=== PATIENT | female | born 1950 | race Caucasian/White ===

== ENCOUNTER 2016-07-13 13:23 | Inpatient (IN) | payer MEDICARE ==
[~2016-07-13] VITALS: Ht 165.1 cm; Wt 70.8 kg
--- NOTE | 2016-07-13 17:00 | NUR ---
PATIENT RECEIVED SITTING UP IN CHAIR AT BEDSIDE. NO SIGNS OF DISTRESS NOTED. ORIENTED TO ROOM. CALL LIGHT IN REACH.
[2016-07-13] MEDS ORDERED: TOPROL XL50 MG PO (17:06)
[2016-07-13] MEDS ORDERED: NORVASC10 MG PO (17:06)
[2016-07-13] MEDS ORDERED: PROPAFENONE HC150 MG PO (17:06)
[2016-07-13] MEDS ORDERED: HYDROCODONE-APA1 TAB PO (17:14)
[2016-07-13 17:18] VITALS: BMI 26.0
[2016-07-13 17:31] LABS: BASOPHILS 0.2 % (0.0-2.0); EOSINOPHILS 1.1 % (0-7); HEMATOCRIT 36.3 % (36.0-48.0); HEMOGLOBIN 12.1 g/dL (12-16); IMMATURE GRANULOCYTES 0.3 % (0-5); LYMPHOCYTES 10.6 % (15-50); MCH 31.6 pg (26.0-34.0); MCHC 33.3 g/dL (31.0-37.0); MCV 94.8 fL (80.0-100.0); MEAN PLATELET VOLUME 10.1 fL (7.4-10.4); MONOCYTES 7.2 % (2-11); NEUTROPHILS 80.6 % (40-80); PLATELET COUNT 316 10x3/uL (130-400); RBC 3.83 10x6/uL (4.00-5.40); RDW 12.2 % (11.5-14.5); WBC 15.2 10x3/uL (4.8-10.8)
[2016-07-13 17:39] LABS: INR 1.06 (0.85-1.17); PROTIME 13.7 SECONDS (11.6-15.0)
[2016-07-13 17:44] LABS: ALBUMIN 2.7 g/dL (3.4-5.0); ANION GAP 12.4 mmol/L (8-16); BILIRUBIN - DIRECT 0.15 mg/dL (0.00-0.30); BILIRUBIN - INDIRECT 0.36 mg/dL (0.00-1.00); BILIRUBIN - TOTAL 0.51 mg/dL (0.2-1.3); CALCIUM 9.4 mg/dL (8.5-10.1); CARBON DIOXIDE 31.1 mmol/L (21.0-32.0); CREATININE - SERUM 1.4 mg/dL (0.6-1.3); POTASSIUM - SERUM 3.5 mmol/L (3.5-5.1); PROTEIN - SERUM 7.3 g/dL (6.4-8.2)
[2016-07-13 17:49] VITALS: BP 118/69
[2016-07-13 19:00] VITALS: BP 110/64
--- NOTE | 2016-07-13 19:00 | NUR ---
PATIENT SITTING IN CHAIR WATCHING TV. AAOX4. RR EVEN AND UNLABORED. 0 S/S OF DISTRESS. DENIES PAIN AT THIS TIME. IVS'S TO RIGHT AC AND LEFT HAND PATENT WITH NO REDNESS OR SWELLING. CALL LIGHT WITHIN REACH.
[2016-07-14] VITALS (10 sets, daily range): BP systolic 97–116; BP diastolic 56–66; Ht 165.1 cm; Wt 70.8 kg
--- NOTE | 2016-07-14 01:35 | NUR ---
NORCO GIVEN FOR PAIN. WILL REASSESS.
[2016-07-14 05:54] LABS: BASOPHILS 0.3 % (0.0-2.0); HEMATOCRIT 33.8 % (36.0-48.0); HEMOGLOBIN 10.9 g/dL (12-16); IMMATURE GRANULOCYTES 0.2 % (0-5); LYMPHOCYTES 14.1 % (15-50); MCH 30.8 pg (26.0-34.0); MCHC 32.2 g/dL (31.0-37.0); MCV 95.5 fL (80.0-100.0); MEAN PLATELET VOLUME 10.2 fL (7.4-10.4); MONOCYTES 7.9 % (2-11); NEUTROPHILS 76.5 % (40-80); PLATELET COUNT 301 10x3/uL (130-400); RBC 3.54 10x6/uL (4.00-5.40); RDW 12.3 % (11.5-14.5); WBC 13.3 10x3/uL (4.8-10.8)
[2016-07-14 06:16] LABS: ANION GAP 10.9 mmol/L (8-16); CALCIUM 9.2 mg/dL (8.5-10.1); CARBON DIOXIDE 31.5 mmol/L (21.0-32.0); CREATININE - SERUM 1.4 mg/dL (0.6-1.3); POTASSIUM - SERUM 3.4 mmol/L (3.5-5.1)
--- NOTE | 2016-07-14 07:30 | NUR ---
AWAKE SITTING IN CHAIR CLOTHES ON AWAKE N/C VOIVED AT PRESENT.
--- NOTE | 2016-07-14 08:00 | NUR ---
VS NO NEW ORDERS R/N AT PRESENT.
--- NOTE | 2016-07-14 09:00 | NUR ---
CONT NPO FOR PROCEDURE AT PRESENT.
--- NOTE | 2016-07-14 09:30 | NUR ---
TO IR VIA BED AT PRESENT.
--- NOTE | 2016-07-14 11:30 | NUR ---
RET FROM IR DRAIN BAG TO RT SIDE DSG IN TACT AT PRESENT AT BEDSIDE AT PRESENT.
--- NOTE | 2016-07-14 13:00 | NUR ---
QUIET IN ROOM N/C IV CONT AT 75CC/HR/IVAC/RT AC AT PRESENT.
--- NOTE | 2016-07-14 15:00 | NUR ---
QUIET IN ROOM AT PRESENT DENIES ANY NEEDS AT THIS TIME.
--- NOTE | 2016-07-14 17:19 | NUR ---
07/14/2016 17:15 CM: Case Management CM consult order rec'd for [facility] transfer. Spoke with Marilee at the [facility] Call Center, initiated transfer request. [facility] will contact Dr. Quintanilla for peer to peer review.
--- NOTE | 2016-07-14 18:15 | NUR ---
PT LAYING QUIETLY IN BED AT PRESENT DENIES ANY NEEDS AT THIS TIME DRAIN FLUCHED WITH 10CC N/S AT PRESENT.
--- NOTE | 2016-07-14 20:35 | NUR ---
REC'D.IN BED EYES CLOSED RESP. DEEP AND EVEN.WILL CONTINUE TO MONITOR FOR ANY CHGES IN ABD. STATUS AND FOLLOW CURRENT PLAN OF CARE.
[2016-07-15] VITALS: BP 112/66
[2016-07-15 04:00] VITALS: BP 109/68
[2016-07-15 05:11] LABS: BASOPHILS 0.3 % (0.0-2.0); EOSINOPHILS 1.5 % (0-7); HEMATOCRIT 32.1 % (36.0-48.0); HEMOGLOBIN 10.4 g/dL (12-16); IMMATURE GRANULOCYTES 0.2 % (0-5); LYMPHOCYTES 17.3 % (15-50); MCH 30.6 pg (26.0-34.0); MCHC 32.4 g/dL (31.0-37.0); MCV 94.4 fL (80.0-100.0); MEAN PLATELET VOLUME 10.1 fL (7.4-10.4); MONOCYTES 8.9 % (2-11); NEUTROPHILS 71.8 % (40-80); PLATELET COUNT 288 10x3/uL (130-400); RDW 12.5 % (11.5-14.5); WBC 10.3 10x3/uL (4.8-10.8)
[2016-07-15 05:18] LABS: ANION GAP 11.5 mmol/L (8-16); CALCIUM 8.6 mg/dL (8.5-10.1); CARBON DIOXIDE 27.8 mmol/L (21.0-32.0); CREATININE - SERUM 1.3 mg/dL (0.6-1.3); POTASSIUM - SERUM 3.3 mmol/L (3.5-5.1)
--- NOTE | 2016-07-15 05:42 | NUR ---
PT IS ASLEEP WITH NO RESPIRATORY DISTRESS NOTED. SITTING UP IN BED WITH HER HEAD TO THE SIDE. THE BED IS LOW, RAILS UP X'S 2 WITH THE CALL LIGHT AT HAND.
[2016-07-15 08:25] VITALS: BP 98/60
--- NOTE | 2016-07-15 08:46 | NUR ---
AWAKE AND ALERT. ORIENTED X3. NO C/O AT THIS TIME. DR. TOMAS HERE. LUNGS ARE CLEAR BILATERALLY, NO COUGH NOTED. SKIN IS INTACT WITHOUT REDNESS EXCEPT WHERE BILIARY DRAIN PLACED TO LEFT LOWER ABDOMEN. DRAIN IS PATENT WITH SEROUS SANGUINESS DRAINAGE NOTED. IV TO LEFT FOREARM PATENT WITHOUT REDNESS AT INSERTION SITE. AT BEDSIDE. REFUSED BREAKFAST TRAY. REFUSED ALTERNATIVES OFFERED WELL. ENCOURGED TO WRITE IN EXTRA ITEMS SHE MIGHT LIKE TO EAT.
--- NOTE | 2016-07-15 10:15 | NUR ---
REQUESTED AND GIVEN ONE HYDROCODONE PO FOR C/O LEFT LOWER QUAD PAIN LEVEL 7. WILL MONITOR. SHOWERED PER SELF WITH SET UP ASSISTANCE ONLY. WILL MONITOR.
--- NOTE | 2016-07-15 12:15 | NUR ---
LUNCH SERVED IN ROOM. ATE ONLY A FEW BITES. ATE THE REST. SHE SAID SHE JUST WASN'T HUNGRY. WILL MONITOR.
[2016-07-15 12:48] VITALS: BP 98/54
[2016-07-15 16:26] VITALS: BP 97/54
--- NOTE | 2016-07-15 18:41 | NUR ---
ATE ABOUT 15% OF SUPPER. SHE SAYS SHE JUST ISN'T HUNGRY. DENIES NEEDS. NO CHANGES NOTED AT THIS TIME.
[2016-07-15 20:00] VITALS: BP 102/63
[2016-07-16] VITALS: BP 94/55
[2016-07-16 04:00] VITALS: BP 98/48
[2016-07-16 06:25] LABS: BASOPHILS 0.5 % (0.0-2.0); EOSINOPHILS 3.1 % (0-7); HEMATOCRIT 31.6 % (36.0-48.0); HEMOGLOBIN 10.1 g/dL (12-16); IMMATURE GRANULOCYTES 0.3 % (0-5); LYMPHOCYTES 24.2 % (15-50); MCH 30.5 pg (26.0-34.0); MCV 95.5 fL (80.0-100.0); MEAN PLATELET VOLUME 10.4 fL (7.4-10.4); MONOCYTES 8.6 % (2-11); NEUTROPHILS 63.3 % (40-80); PLATELET COUNT 293 10x3/uL (130-400); RBC 3.31 10x6/uL (4.00-5.40); RDW 12.6 % (11.5-14.5); WBC 7.4 10x3/uL (4.8-10.8)
--- NOTE | 2016-07-16 06:25 | NUR ---
PATIENT SLEEPING IN SEMI-FOWLERS POSITION. NO VISIBLE SIGNS OF DISTRESS NOTED.
[2016-07-16 06:36] LABS: ANION GAP 11.2 mmol/L (8-16); CARBON DIOXIDE 26.5 mmol/L (21.0-32.0); CREATININE - SERUM 1.3 mg/dL (0.6-1.3); POTASSIUM - SERUM 3.7 mmol/L (3.5-5.1)
[2016-07-16 07:56] VITALS: BP 99/63
--- NOTE | 2016-07-16 10:02 | NUR ---
IV SITE TENDER. D/C IV WITH CATH INTACT
--- NOTE | 2016-07-16 11:21 | NUR ---
IV STARTED TO RIGHT WRIST 20G X'S 1 ATTEMPT.
--- NOTE | 2016-07-16 12:30 | NUR ---
PATIENT'S EATING HER LUNCH. I STATED "ARE YOU NOT HUNGERY?" PATIENT STATED "I AM TOO AFRAID TO EAT. I ATE A LITTLE BIT OF BREAKFAST THIS MORNING AND HAD TO RUN TO THE BATHROOM TWICE AFTERWARDS FOR DIARRHEA." OFFERED PATIENT SOMETHING ELSE TO EAT, AN ENSURE, JELLO, PUDDING, BROTH. PATIENT REFUSED ALL, STATED "NO I DO NOT WANT ANYTHING."
[2016-07-16 13:02] VITALS: BP 116/68
--- NOTE | 2016-07-16 13:54 | NUR ---
PATIENT STATED "THE STOOL SAMPLE IS NOT NECESSARY. I HAVE IBS. THIS IS NOT ABNORMAL FOR ME FOR HAVE A COUPLE OF LOOSE BOWEL MOVEMENTS. I REFUSE TO HAVE THIS DONE." I EXPLAINED TO PATIENT WHAT C.DIFF IS, HOW YOU CAN GET IT FROM BEING ON ANTIBIOTICS. EXPLAINED THAT IT CAN BE VERY SERIOUS IF LEFT UNTREATED. PATIENT STATED "THIS IS MY NORMAL. I AM NOT HAVING MY STOOL TESTED FOR C.DIFF WHEN I AM JUST HAVING MY USUAL STOOLS."
--- NOTE | 2016-07-16 14:07 | NUR ---
CALLED NOTIFIED HIM OF WHAT PATIENT SAID HE STATED "IF THIS IS HER USUAL THEN D/C THE C.DIFF ORDER."
[2016-07-16 15:56] VITALS: BP 104/61
[2016-07-16 21:00] VITALS: BP 95/61
[2016-07-17 01:00] VITALS: BP 86/52
[2016-07-17 04:00] VITALS: BP 113/66
--- NOTE | 2016-07-17 06:01 | NUR ---
PT IN BED WITH NO NEEDS. NURSE IN ROOM PASSING MEDICATION. SCD'S ON. RIGHT WRIST IV PATENT AND FLUIDS RUNNING PER ORDER. BILI DRAIN TO LEFT LOWER QUADRANT. BOWEL SOUNDS ACTIVE. SIDE RAILS ARE UP X 2. BED IS LOW. CALL LIGHT IS IN REACH.
[2016-07-17 08:36] VITALS: BP 114/61
--- NOTE | 2016-07-17 09:10 | NUR ---
ASSESSMEN TPER FLOW SHEET.PT WITHOUT DISTRESS.MEDS PER MAR ORDERED.PT DECLINES MIRALAX AND LACTINEX.PAIN MEDS ORDERED FOR PAIN 5/10 SCALE TO LEFT LOWER ABD.CALL LIGHT IN REACH
--- NOTE | 2016-07-17 10:36 | NUR ---
RESTING WITHOUT DISTRESS.MONITOR FOR NEEDS
[2016-07-17 12:28] VITALS: BP 88/56
--- NOTE | 2016-07-17 15:26 | NUR ---
Patient Name: AMAURY CLEVELAND Admission Status: Urgent Accout number: [id number] Admission Date: 07-13-2016 : 1950 Admission Diagnosis:DVTRCLI OF INTEST, PART UNSP, W PERF AND ABSCESS W/O BL Attending: DIANNA Current LOS: 4 Anticipated DC Date: 07-20-2016 Planned Disposition: Home Primary Insurance: MEDICARE A & B Discharge Planning Comments: CM MET WITH PATIENT REGARDING D/C NEEDS AND PLANS. PATIENT STATES SHE LIVES AT HOME WITH HER SPOUSE (EDDY) AND HE WILL TRANSPORT HER HOME AT DISCHARGE. PATIENT STATED THEY HAVE NO STEPS TO ENTER HOME BUT HAVE 2 STAIRCASES W/RAILS AT HOME. PATIENT DOES NOT HAVE TO USE THEM. PATIENT STATED SHE IS INDEPENDENT WITH HER CARE AND HAS A WHEELCHAIR, AND BUILT IN SHOWER AT HOME. PATIENTS PCP IS DR. GUERRA AND PHARMACY IS [facility] ON [address]. PATIENT DOES NOT THINK SHE WILL NEED HOME HEALTH AT THIS TIME. CM WILL CONTINUE TO FOLLOW PATIENT WITH D/C NEEDS AND PLANS. PCP DR[facility] [address] [phone] EDDY (SPOUSE) [phone] Channel Process Plant Operator: Meryl Holloway Is the patient Alert and Oriented? Yes 0 * How many steps to enter\exit or inside your home? 2 FLIGHTS 0 * PCP DR. GUERRA 0 * Pharmacy [facility] 0 * Preadmission Environment Home with Family 0 * ADLs Independent 0 * Equipment Wheelchair 0 * Other Equipment BUILT IN SHOWER CHAIR 0 * List name and contact numbers for known caregivers / representatives who currently or will assist patient after discharge: EDDY [phone] * Community resources currently utilized None 0 * Additional services required to return to the preadmission environment? Yes 0 * Can the patient safely return to the preadmission environment? Yes 0 * Has this patient been hospitalized within the prior 30 days at any hospital? No 0 Grand Total: 0
[2016-07-17 16:45] VITALS: BP 103/64
--- NOTE | 2016-07-17 18:23 | NUR ---
REMAINS WITHOUT NEEDS,WITHOUT DISTRESS.REMAINS UNCHANGED FROM INITIAL SHIFT ASSESSMENT.CONT PLAN OF CARE
--- NOTE | 2016-07-17 20:03 | NUR ---
PT ROUNDING AND ASSESSMENT COMPLETED RESPERATIONS EVEN AND UNLABORED ON ROOM AIR RIGHT WRIST IVP INFUSING D5 NS WITH 20K AT 75 BILLINARY DRAIN INPLACE AND FLUSHED WITH 10CC SALINE AT THIS TIME PT STATES " PAIN IS THERE BUUT IT IS NOT BAD AND I AM GOOD" PT REFUSED PAIN MEDS AT THIS TIME AND WILL MONITOR PAIN BED LOW AND LOCKED SRX2 CALL LIGHT IN REACH WILL MONITOR
[2016-07-17 21:00] VITALS: BP 106/55
[2016-07-18 01:00] VITALS: BP 96/55
[2016-07-18 04:00] VITALS: BP 108/66
[2016-07-18 08:00] VITALS: BP 110/66
[2016-07-18 08:10] LABS: BASOPHILS 0.8 % (0.0-2.0); EOSINOPHILS 4.3 % (0-7); HEMOGLOBIN 10.3 g/dL (12-16); IMMATURE GRANULOCYTES 0.2 % (0-5); LYMPHOCYTES 27.3 % (15-50); MCH 30.2 pg (26.0-34.0); MCHC 31.2 g/dL (31.0-37.0); MCV 96.8 fL (80.0-100.0); MEAN PLATELET VOLUME 9.9 fL (7.4-10.4); MONOCYTES 7.4 % (2-11); PLATELET COUNT 292 10x3/uL (130-400); RBC 3.41 10x6/uL (4.00-5.40); RDW 12.8 % (11.5-14.5); WBC 5.1 10x3/uL (4.8-10.8)
--- NOTE | 2016-07-18 08:23 | NUR ---
ASSESSMENT PER FLOW SHEET.PT WITHOUT DISTRESS.REPORTS TO [facility] STOOLS THIS AM.DENIES FURTHER NEEDS.LEFT FLOOR VIA WHEELCHAIR FOR XRAY.
[2016-07-18 08:27] LABS: ANION GAP 11.4 mmol/L (8-16); BILIRUBIN - TOTAL 0.4 mg/dL (0.2-1.3); CARBON DIOXIDE 26.3 mmol/L (21.0-32.0); CREATININE - SERUM 1.4 mg/dL (0.6-1.3); POTASSIUM - SERUM 3.7 mmol/L (3.5-5.1); PROTEIN - SERUM 5.7 g/dL (6.4-8.2)
--- NOTE | 2016-07-18 09:30 | NUR ---
BACK FROM PROCEDURE,WITHOUT DISTRESS.MONITOR FOR NEEDS
[2016-07-18 11:44] VITALS: BP 114/61
--- NOTE | 2016-07-18 12:19 | NUR ---
SPOKE WITH ADRIEL AT CLINIC.HE WILL DC PT AFTER CLINIC.
--- NOTE | 2016-07-18 13:10 | NUR ---
CM REASSESSMENT NOTE: PATIENT IS DISCHARGING HOME TODAY WITH NO NEEDS. IS DRIVING PATIENT HOME. [facility] AN OUT[facility]. DENIED NEED FOR HOME HEALTH.
[2016-07-18] MEDS ORDERED: FLAGYL500 MG PO (13:12)
[2016-07-18] MEDS ORDERED: CIPRO500 MG PO (13:12)
--- NOTE | 2016-07-18 13:34 | NUR ---
DISCHARGE INSTRUCTIONS,STATES UNDERSTANDING.LEFT FLOOR VIA WHEELCHAIR FOR TRANSPORT HOME.
--- NOTE | 2016-09-13 10:17 | CN ---
PATIENT NAME:AMAURY CLEVELAND MEDICAL RECORD: [id number] : 46 LOCATION:[id number] ADMIT DATE: 07/13/16 ACCOUNT: [id number] CONSULTING PHYSICIAN: JANA AMBRIZ MD REFERRING PHYSICIAN: LOLI GUERRA MD DATE OF CONSULTATION: 07/13/2016 CHIEF COMPLAINT: Abscess. HISTORY OF PRESENT ILLNESS: The patient has 2 apparent different problems. She has a pelvic abscess and this is likely a diverticular abscess. She has been on treatment for diverticulitis. I think this is going to be best treated with a CT-guided drain. Hopefully, we can drain the abscess and have a primary anastomosis without colostomy. The more worrisome situation may actually be a right-sided pelvic mass, which likely represents an ovarian or gynecologic malignancy. It may be that we need to tackle this tumor here in [place] or she may need to be transferred up to [place]. Anyhow, I think it would be in her best interest to undergo both procedures at the same time. Palpation aggravates. Nothing alleviates. Symptoms are mild. It is an intermittent pain. This is a consultation note addendum. For the typed portion of the consult note including the past medical and surgical history, allergies, current medications and social history, please see the chart. REVIEW OF SYSTEMS: Positive for pelvic pain. No fever, no chills, no nausea, no vomiting and no chest pain. PHYSICAL EXAMINATION: GENERAL: The patient does not appear acutely ill. She does not appear chronically ill. VITAL SIGNS: Reviewed. The entire physical examination was performed in the presence of a female nurse. HEAD: External ears appear normal. EYES: Extraocular movements are intact. NECK: Trachea is midline. CHEST: No intercostal retractions. PULMONARY: Nonlabored, no stridor. ABDOMEN: Mild tenderness to palpation diffusely in lower abdomen. EXTREMITIES: No peripheral cyanosis. INTEGUMENT: No rash, no ulcerations. PSYCHIATRIC: Normal affect. NEUROLOGIC: Nonfocal, no lethargy. The patient answers questions appropriately, moves all extremities well. BACK: No thoracic kyphosis. LYMPHATICS: No lymphangitic streaking of the exposed extremities. IMPRESSION AND PLAN: 1. Probable diverticular pelvic abscess. Recommend a CT-guided drains as well as IV antibiotics. 2. 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 We need to determine whether this needs to be referred to a gynecologic oncologist or not. TRANSINT:[id number] Voice Confirmation ID: [id number] DOCUMENT ID: [id number] CONSULT REPORT [id number] AMAURY CLEVELAND ROBERT MD at 1017 CC: LOLI GUERRA MD and NICCI BRAGG MD [id number] DICTATION DATE: 07/13/161944 HONING MACHINE SET UP OPERATOR TOOL: 07/13/166 DIS IN 07/18/[address] [id number]
== END 2016-07-18 13:37 | disposition home or self-care (01) | DRG 392 ==
LOC: D.CT 13:23 → D.MS 16:21
PROVIDERS: Legal Medicine; Radiology Diagnostic Radiology; ADMIT Family Medicine
PROC: 0W9G30Z Drainage of Peritoneal Cavity with Drainage Device, Percutaneous Approach (ICD-10-PCS; principal; 2016-07-14 09:40)
PROC: 0WPGX0Z Removal of Drainage Device from Peritoneal Cavity, External Approach (ICD-10-PCS; 2016-07-18)
DX: K57.80 Diverticulitis of intestine, part unspecified, with perforation and abscess without bleeding (principal); R19.03 Right lower quadrant abdominal swelling, mass and lump; I10 Essential (primary) hypertension; I48.91 Unspecified atrial fibrillation; K58.0 Irritable bowel syndrome with diarrhea